=== PATIENT | male | born 1945 | race Caucasian/White ===

== ENCOUNTER 2017-04-25 13:04 | Inpatient (IN) | payer OTHER, BC ==
[~2017-04-25] VITALS: Ht 188 cm; Wt 108.9 kg
--- NOTE | 2017-04-25 13:04 | NUR ---
Patient was BIBA and taken to bed 10 via gurney.
--- NOTE | 2017-04-25 13:10 | NUR ---
PATIENT BIB BY AMBULANCE. PER EMS, WITNESSED TONIC/CLONIC SEIZURE THAT LASTED 40SEC. WHILE SITTING ON THE CHAIR. INCONTINENT URINE.AAO ON ARRIVAL TO ER.DIZZY PRIOR TO SEIZURE PER CHIEF KNOWLEDGE OFFICER. BP FIELD 97/56. HX:COPD,HTN,ASTHMA,HYPOTHYROIDSM . DENIES N/V/D; SKIN IS PINK/WARM/DRY; AAOX4 WITH EVEN AND STEADY GAIT; LUNGS CLEAR BL; HR EVEN AND REGULAR; PT DENIES ANY FEVER, CP, SOB, OR COUGH AT THIS TIME; PATIENT STATES PAIN OF 0/10 AT THIS TIME; VSS; PATIENT POSITIONED FOR COMFORT; HOB ELEVATED; BEDRAILS UP X2; BED DOWN. ER MD MADE AWARE OF PT STATUS.
[2017-04-25] MEDS ORDERED: NACL 0.9% 1,000 ML IV ONE (13:15)
[2017-04-25 13:18] VITALS: BP 106/69
[2017-04-25] MEDS ORDERED: LOSA50TA39 PO (13:29)
[2017-04-25] MEDS ORDERED: SYN.075 PO (13:29)
[2017-04-25] MEDS ORDERED: FLUT1DSK2 IH (13:29)
[2017-04-25 13:43] LABS: HEMATOCRIT 44.7 % (36-52); HEMOGLOBIN 14.1 g/dL (12.0-18.0); MEAN CORPUSCULAR HEMOGLOBIN 27 pg (27-31); MEAN CORPUSCULAR HGB CONC 32 g/dL (33-37); MEAN CORPUSCULAR VOLUME 84 fL (80-94); PLATELET COUNT (AUTO) 161 K/uL (140-450); RED BLOOD CELL COUNT(AUTO) 5.32 MIL/uL (4.20-6.10); RED CELL DISTRIBUTION WIDTH 13.6 % (11.6-13.7); WHITE BLOOD COUNT (AUTO) 4.3 K/uL (4.8-10.8)
--- NOTE | 2017-04-25 13:47 | NUR ---
WENT TO CT SCAN ACCOMPANIED BY TECH.
[2017-04-25 13:58] LABS: EOSINOPHILS % (MANUAL) 3 % (0-4); LYMPHOCYTES % (MANUAL) 33 % (20-46); MONOCYTES % (MANUAL) 11 % (5-12)
[2017-04-25 14:01] LABS: ALBUMIN 3.5 g/dL (3.4-5.0); ANION GAP 13.7 (8-16); ASPARTATE AMINOTRANSFERASE 24 U/L (15-37); CARBON DIOXIDE 24.9 mmol/L (21-32); CHLORIDE 102 mmol/L (98-107); CREATININE 1.3 mg/dL (0.7-1.3); GLUCOSE 103 mg/dL (74-106); LIPASE 140 U/L (73-393); POTASSIUM 3.6 mmol/L (3.5-5.1); SODIUM SERUM 137 mmol/L (136-145); TOTAL BILIRUBIN 0.4 mg/dL (0.0-1.0); UREA NITROGEN, BLOOD 20 mg/dL (7-18)
[2017-04-25 14:06] LABS: CREATINE KINASE MB 0.1 ng/mL (0-3.6)
[2017-04-25] MEDS ORDERED: HYDROcodone/APAP 7.5/325 MG 1 TAB PO PRN (14:25)
[2017-04-25] MEDS ORDERED: ACETAMINOPHEN 325 MG TAB PO PRN (14:25)
[2017-04-25] MEDS ORDERED: ONDANSETRON 4 MG/2 ML VIAL IM/IVP PRN (14:25)
--- NOTE | 2017-04-25 14:25 | NUR ---
Patient will be admitted to care of DR AC . Admited to [facility] . Will go to room 107B. Belongings list completed. Report to [facility].
[2017-04-25 15:26] VITALS: BP 112/73
--- NOTE | 2017-04-25 15:30 | NUR ---
RECEIVED PT REPORT FROM ER NURSE, PT A/O X4, VS STABLE, IV PATENT AND INTACT, PT DENIES PAIN. NO S/S OF ACUTE DISTRESS NOTED, PLAN OF CARE DISCUSSED WITH PT AND FAMILY, PT VERBALIZED UNDERSTANDING. PT ON 2L O2 VIA NC. SEIZURE AND FALL PRECAUTIONS IN PLACE, BED LOWERED AND CALL LIGHT WITHIN REACH, WILL CONTINUE TO MONITOR.
--- NOTE | 2017-04-25 15:35 | NUR ---
PT HAS BEEN SEEN BY DR. CALLES. MD WILL PUT IN NEW ORDERS.
[2017-04-25 15:46] LABS: CHOL/HDL RATIO 4.2 (1-4.5); FREE T4 (FREE THYROXINE) 1.26 ng/dL (0.76-1.46); MAGNESIUM 2.1 mg/dL (1.8-2.4); THYROID STIMULATING HORMONE 0.23 uIU/mL (0.34-3.74)
[2017-04-25] MEDS: NACL 0.9% 1,000 ML IV SCH (17:16)
--- NOTE | 2017-04-25 18:00 | NUR ---
PT HAD DINNER. NO S/S ACUTE DISTRESS NOTED.
[2017-04-25] MEDS ORDERED: INFLUENZA VIRUS VACCINE QUAD 0.5 ML SYR IMVAC SCH (19:30)
--- NOTE | 2017-04-25 19:30 | NUR ---
ENDORSED PT TO VENDING MACHINE HOST/HOSTESS RN. BEDSIDE REPORT GIVEN. PT IS IN STABLE CONDITION.
--- NOTE | 2017-04-25 19:31 | NUR ---
RECEIVED REPORT FROM DAY SHIFT NURSE. PT LYING IN BED COMFORTABLY. NO C/O PAIN OR DISCOMFORT. IV TO LEFT FA #18G WITH NS @ 60ML/HR. DISCUSSED PLAN OF CARE, PT VERBALIZED UNDERSTANDING. SAFETY AND SEIZURE PRECAUTION IN PLACE. CALL LIGHT WITHIN REACH. WILL CONTINUE TO MONITOR.
[2017-04-25 20:00] VITALS: BP 110/63
[2017-04-25] MEDS: AMOXIL/CLAVULANATE 875/125 MG 1 TAB PO SCH (21:41)
[2017-04-26] VITALS: BP_SYST 100; BP_SYST 113; BP_SYST 126; BP_DIAS 60; BP_DIAS 69; BP_DIAS 90
--- NOTE | 2017-04-26 00:03 | NUR ---
PT IN BED, AWAKE. ORTHOSTATIC V/S DONE. NO C/O DIZZINESS. NO C/O PAIN OR DISCOMFORT NOTED. ALL NEEDS MET AT THIS TIME. CALL LIGHT WITHIN REACH.
--- NOTE | 2017-04-26 02:13 | NUR ---
PT SLEEPING. NO S/S OF DISTRESS. CALL LIGHT WITHIN REACH.
[2017-04-26 04:00] VITALS: BP 108/68
--- NOTE | 2017-04-26 04:00 | NUR ---
PT REFUSED SCD'S. PT STATED HE DOESN'T NEED IT.
--- NOTE | 2017-04-26 05:50 | NUR ---
PT SLEEPING. NO S/S OF PAIN OR DISCOMFORT. CALL LIGHT WITHIN REACH.
[2017-04-26] MEDS: NACL 0.9% 1,000 ML IV SCH (06:47)
--- NOTE | 2017-04-26 07:15 | NUR ---
ENDORSED PT TO DAY SHIFT NURSE. PT IN STABLE CONDITION.
--- NOTE | 2017-04-26 07:20 | NUR ---
RECEIVED REPORT FROM DIESEL FLEET MECHANIC NURSE PT RESTING IN BED, A/OX4, AMBULATORY, IV IS ON THE LEFT AC, PATENT, INTACT, FLUSHING WELL, PT IS ON O2 2L NC, NO S/S OF RESPIRATORY DISTRESS OR DISCOMFORT NOTED, DISCUSSED PLAN OF CARE WITH PT, PT VERBALIZED UNDERSTANDING, SAFETY/FALL/SEIZURE PRECAUTIONS ARE IN PLACE, CALL LIGHT IS WITHIN REACH, WILL CONTINUE TO MONITOR.
[2017-04-26 08:00] VITALS: BP 109/79
[2017-04-26] MEDS ORDERED: FLUTICASONE NASAL 50 MCG/ACTUATION 16 GM BTL NS SCH (09:00)
[2017-04-26] MEDS ORDERED: LOSARTAN 50 MG TAB PO SCH (09:00)
[2017-04-26] MEDS ORDERED: PSEUDOEPHEDRINE 30 MG TAB PO PRN (09:00)
[2017-04-26] MEDS ORDERED: LEVOTHYROXINE 0.075 MG TAB PO SCH (09:00)
[2017-04-26] MEDS ORDERED: ATORVASTATIN 20 MG TAB PO SCH (09:00)
[2017-04-26] MEDS ORDERED: guaiFENesin 20 MG/ML UDC PO PRN (09:00)
[2017-04-26] MEDS: AMOXIL/CLAVULANATE 875/125 MG 1 TAB PO SCH (09:18)
[2017-04-26 12:00] VITALS: BP 115/71
--- NOTE | 2017-04-26 13:00 | NUR ---
PT IS RESTING IN BED, WATCHING TV, CALL LIGHT LIGHT IS WITHIN REACH.
[2017-04-26] MEDS: AMPICILLIN/SULBACTAM 1.5 GM in NACL 0.9% 50 ML IV SCH ×2 (13:24→17:02)
[2017-04-26] MEDS ORDERED: AMOX1TAB8 PO (15:16)
[2017-04-26] MEDS ORDERED: LACT10CA PO (15:16)
[2017-04-26] MEDS ORDERED: CARV3.122 PO (15:16)
[2017-04-26] MEDS ORDERED: ATOR20TA40 PO (15:38)
--- NOTE | 2017-04-26 15:48 | NUR ---
PT UP TO DATE WITH FLU VACCINE, RECEIVED ON 02/2017. PT REFUSED PNA VACCINE.
[2017-04-26 16:00] VITALS: BP 119/73
--- NOTE | 2017-04-26 17:30 | NUR ---
DR. DOTSON IS IN PATIENT'S ROOM SPEAKING WITH PT AND PATIENT'S IS AT BEDSIDE.
--- NOTE | 2017-04-26 17:50 | NUR ---
DISCHARGE INSTRUCTIONS GIVEN, ID WRIST BAND REMOVED, IV REMOVED, CATHETER TIP INTACT. PT STABLE UPON DISCHARGE ACCOMPANIED BY HIS .
[2017-04-26] MEDS ORDERED: CARVEDILOL 3.125 MG TAB PO SCH (21:00)
[2017-04-27] MEDS ORDERED: LACTOBACILLUS RHAMNOSUS GG 1 EACH CAP PO SCH (09:00)
== END 2017-04-26 17:50 | disposition home or self-care (01) | DRG 74 ==
LOC: MED 13:04 → MTU 14:27
PROVIDERS: ADMIT Family Medicine; ATTEND Family Medicine
DX: G90.9 Disorder of the autonomic nervous system, unspecified (principal); E03.9 Hypothyroidism, unspecified; J01.90 Acute sinusitis, unspecified; I10 Essential (primary) hypertension; J45.909 Unspecified asthma, uncomplicated; J06.9 Acute upper respiratory infection, unspecified; F17.290 Nicotine dependence, other tobacco product, uncomplicated; E78.5 Hyperlipidemia, unspecified; Z79.899 Other long term (current) drug therapy; Z79.2 Long term (current) use of antibiotics
CPT/HCPCS: 36415; 70450; 71010; 80053; 82150; 82550; 82553; 82948; 83036; 83605; 83690; 83735; 83880; 84100; 84436; 84439; 84443; 84479; 84484; 85025; 85610; 85730; 87040; 87081; 87804; 93005; 93880; 96360; 99285; J0295; J7030; Q0092